=== PATIENT | male | born 1995 | race Caucasian/White ===

== ENCOUNTER 2023-08-29 20:28 | Emergency (ER) | payer OTHER ==
[~2023-08-29] VITALS: Ht 180.3 cm; Wt 99.8 kg
[2023-08-29 20:33] VITALS: BP_SYST 137; BP_SYST 167; BP_DIAS 111; BP_DIAS 92; PULSE 100; RESP 20; TEMP 98; O2SAT 98
[2023-08-29 22:35] VITALS: BP 140/88; PULSE 100; RESP 18; O2SAT 95
== END 2023-08-29 22:35 | disposition home or self-care (01) ==
LOC: MED 20:28
DX: F14.129 Cocaine abuse with intoxication, unspecified (principal); I10 Essential (primary) hypertension
CPT/HCPCS: 93005; 99283

== ENCOUNTER 2023-12-09 11:05 | Inpatient (IN) | payer MEDICAID, OTHER ==
[~2023-12-09] VITALS: Ht 180.3 cm; Wt 78.0 kg
[2023-12-09 11:06] VITALS: BP 127/91; PULSE 106; RESP 22; TEMP 97.8; O2SAT 92
[2023-12-09 11:46] LABS: BASOPHILS % (AUTO) 0.5 % (0.0-2.0); EOSINOPHILS # (AUTO) 0.1 K/uL (0-0.4); EOSINOPHILS % (AUTO) 0.9 % (0.0-4.0); HEMATOCRIT 41.9 % (36-52); HEMOGLOBIN 14.7 g/dL (12.0-18.0); LYMPHOCYTES # (AUTO) 0.8 K/uL (2.0-11.5); LYMPHOCYTES % (AUTO) 10.8 % (20.5-51.1); MEAN CORPUSCULAR HEMOGLOBIN 33 pg (27-31); MEAN CORPUSCULAR HGB CONC 35 g/dL (33-37); MEAN CORPUSCULAR VOLUME 95.1 fL (80-94); MONOCYTES # (AUTO) 0.5 K/uL (0.8-1.0); MONOCYTES % (AUTO) 6.9 % (1.7-9.3); NEUTROPHILS # (AUTO) 6.2 K/uL (1.8-7.7); NEUTROPHILS % (AUTO) 80.9 % (42.2-75.2); PLATELET COUNT (AUTO) 77 K/uL (140-450); RED BLOOD CELL COUNT(AUTO) 4.41 MIL/uL (4.20-6.10); WHITE BLOOD COUNT (AUTO) 7.6 K/uL (4.8-10.8)
[2023-12-09 11:47] LABS: APPEARANCE,URINE CLEAR (CLEAR); BILIRUBIN,URINE 1+ (NEGATIVE); BLOOD, URINE 3+ (NEGATIVE); COLOR,URINE YELLOW (YELLOW); LEUKOCYTE ESTERASE ,URINE TRACE (NEGATIVE); NITRITE, URINE NEGATIVE (NEGATIVE); PROTEIN,URINE 3+ (NEGATIVE); UGLUCOSE NEGATIVE (NEGATIVE)
[2023-12-09 11:58] LABS: CARBON DIOXIDE 22.4 mmol/L (21-32); POTASSIUM 3.4 mmol/L (3.5-5.1)
[2023-12-09 12:11] LABS: AMPHETAMINE, URINE NEGATIVE ng/ml (NEG <=1000); BARBITURATE, URINE NEGATIVE ng/ml (NEG <=200); BENZODIAZEPINE, URINE NEGATIVE ng/mL (NEG <=200); CANNABINOID, URINE NEGATIVE ng/mL (NEG <=50); COCAINE, URINE NEGATIVE ng/mL (NEG <=300); OPIATE, URINE NEGATIVE ng/mL (NEG <=2000); PHENCYCLIDINE SCREEN,URINE NEGATIVE ng/mL (NEG <=25)
[2023-12-09 12:17] LABS: BACTERIA,URINE FEW /HPF (None Seen); RBC,URINE 11-20 (MOD) /HPF (0-5); SQUAMOUS EPITHELIAL CELL,UR 4-10 (MOD) /LPF (0-3 (FEW)); WBC,URINE 0-5 /HPF (0-5)
[2023-12-09 12:21] LABS: ICTOTEST NEGATIVE (NEGATIVE)
[2023-12-09] MEDS: LORazepam 2 MG/ML VIAL IVP ONE (13:07)
[2023-12-09] MEDS ORDERED: ACETAMINOPHEN 325 MG TAB PO PRN (15:05)
[2023-12-09] MEDS ORDERED: ONDANSETRON 4 MG/2 ML VIAL IVP PRN (15:05)
[2023-12-09] MEDS: NACL 0.9% 1,000 ML IV SCH (16:05)
[2023-12-09 19:22] VITALS: O2SAT 98
[2023-12-09 21:00] VITALS: BP 154/91; PULSE 78; PULSE 80; RESP 15; RESP 18; TEMP 97.8; O2SAT 98; O2SAT 99
[2023-12-09 21:01] VITALS: PULSE 80
[2023-12-10] VITALS: PULSE 74
[2023-12-10 00:01] VITALS: BP 132/86; PULSE 74; RESP 16; TEMP 97.5; O2SAT 95
[2023-12-10 04:00] VITALS: BP 107/57; PULSE 67; RESP 18; TEMP 97.6; O2SAT 95
[2023-12-10 06:58] LABS: BASOPHILS % (AUTO) 0.4 % (0.0-2.0); EOSINOPHILS # (AUTO) 0.2 K/uL (0-0.4); EOSINOPHILS % (AUTO) 3.7 % (0.0-4.0); HEMATOCRIT 39.7 % (36-52); HEMOGLOBIN 13.9 g/dL (12.0-18.0); LYMPHOCYTES # (AUTO) 1.2 K/uL (2.0-11.5); LYMPHOCYTES % (AUTO) 23.3 % (20.5-51.1); MEAN CORPUSCULAR HEMOGLOBIN 33 pg (27-31); MEAN CORPUSCULAR HGB CONC 35 g/dL (33-37); MEAN CORPUSCULAR VOLUME 95.1 fL (80-94); MONOCYTES # (AUTO) 0.6 K/uL (0.8-1.0); MONOCYTES % (AUTO) 11.5 % (1.7-9.3); NEUTROPHILS # (AUTO) 3.1 K/uL (1.8-7.7); NEUTROPHILS % (AUTO) 61.1 % (42.2-75.2); PLATELET COUNT (AUTO) 62 K/uL (140-450); RED BLOOD CELL COUNT(AUTO) 4.18 MIL/uL (4.20-6.10)
[2023-12-10 07:10] LABS: ANION GAP 13.9 (8-16); CALCIUM 8.8 mg/dL (8.5-10.1); CARBON DIOXIDE 27.4 mmol/L (21-32); CREATININE 0.9 mg/dL (0.6-1.3); POTASSIUM 3.3 mmol/L (3.5-5.1)
[2023-12-10 08:00] VITALS: BP 143/93; PULSE 85; PULSE 87; RESP 18; O2SAT 100; O2SAT 98
[2023-12-10] MEDS: FOLIC ACID 1 MG TAB PO SCH (08:13)
[2023-12-10] MEDS: LORazepam 2 MG/ML VIAL IVP PRN (11:08)
[2023-12-10 12:00] VITALS: BP 135/98; PULSE 79; RESP 18; TEMP 97.8; O2SAT 99
== END 2023-12-10 13:35 | disposition left against medical advice (07) | DRG 53 ==
LOC: MED 11:05 → MTU 15:07
PROVIDERS: ADMIT Family Medicine; ATTEND Family Medicine
DX: G40.509 Epileptic seizures related to external causes, not intractable, without status epilepticus (principal); E87.6 Hypokalemia; F10.239 Alcohol dependence with withdrawal, unspecified; I10 Essential (primary) hypertension; Z53.29 Procedure and treatment not carried out because of patient's decision for other reasons; Z79.899 Other long term (current) drug therapy
CPT/HCPCS: 36415; 80048; 80305; 81001; 83735; 85025; 87081; 93005; 96374; 99291; G0482; J2060